=== PATIENT | female | born 1995 | race Caucasian/White ===

== ENCOUNTER 2017-02-05 14:05 | Emergency (ER) | payer OTHER ==
[~2017-02-05] VITALS: Ht 157.5 cm; Wt 43.4 kg
[2017-02-05 14:22] VITALS: BP 115/76
[2017-02-05] MEDS ORDERED: ONDANSETRON 2MG/ML, 2ML IVPush ONE (14:30)
[2017-02-05] MEDS ORDERED: SODIUM CHLORIDE 0.9% 1,000ML IVBOLUS ONE (14:30)
[2017-02-05] MEDS ORDERED: SODIUM CHLORIDE FLUSH 10ML SYR IVF ONE (14:30)
[2017-02-05] MEDS ORDERED: PLEASE ENTER ALLERGIES MC SCH ×2 (15:00)
[2017-02-05] MEDS ORDERED: NORE-53 PO (15:12)
[2017-02-05 15:39] LABS: ASPARTATE AMINO TRANSFERASE 33 U/L (15-37); BLOOD UREA NITROGEN 8 mg/dL (7-18)
[2017-02-05 16:10] LABS: RAPID INFLUENZA A Negative (Negative); RAPID INFLUENZA B Negative (Negative)
== END 2017-02-05 17:09 | disposition home or self-care (01) ==
LOC: ED 17:03
DX: B34.9 Viral infection, unspecified (principal); R11.2 Nausea with vomiting, unspecified; F12.10 Cannabis abuse, uncomplicated
CPT/HCPCS: 36415; 80053; 81001; 84703; 85025; 87400; 96360; 96361; 99285; J7030

== ENCOUNTER 2017-05-30 16:33 | Emergency (ER) | payer OTHER ==
[~2017-05-30] VITALS: Ht 157.5 cm; Wt 41.1 kg
[~2017-05-30 16:33] MED LIST: NORE-53 PO
[2017-05-30] MEDS ORDERED: ONDANSETRON ODT 4 MG ONE ×2 (16:58→17:39)
[2017-05-30] MEDS ORDERED: ONDANSETRON ODT 4 MG PO ONE (17:30)
[2017-05-30] MEDS ORDERED: BUSP7.5T3 PO (17:37)
[2017-05-30] MEDS ORDERED: VENL37.52 PO (17:37)
[2017-05-30 18:02] VITALS: BP 112/64
== END 2017-05-30 18:34 | disposition home or self-care (01) ==
LOC: ED 18:11
DX: G43.A1 Cyclical vomiting, in migraine, intractable (principal); R11.0 Nausea; F41.1 Generalized anxiety disorder
CPT/HCPCS: 36415; 71010; 85379; 93005; 99285; Q0162

== ENCOUNTER 2018-01-24 00:07 | Emergency (ER) | payer OTHER ==
[~2018-01-24] VITALS: Ht 162.6 cm; Wt 58.0 kg
[~2018-01-24 00:07] MED LIST changes: +BUSP7.5T3 PO; +VENL37.52 PO
[2018-01-24] MEDS ORDERED: LORazepam 2 MG/ML, 1ML ONE (00:34)
[2018-01-24 00:48] LABS: BASOPHILS # (AUTO) 0.06 x10^3/uL (0-0.1); BASOPHILS % (AUTO) 1 % (0-1); EOSINOPHILS # (AUTO) 0.23 x10^3/uL (0-0.4); EOSINOPHILS % (AUTO) 3 % (1-7); LYMPHOCYTES # (AUTO) 2.74 x10^3/uL (1-3.4); LYMPHOCYTES % (AUTO) 36 % (22-44); MD NO; MEAN CORPUSCULAR HEMOGLOBIN 30.6 pg (27.0-34.8); MEAN CORPUSCULAR HGB CONC 33.4 g/dL (32.4-35.8); MEAN CORPUSCULAR VOLUME 91.6 fL (80-100); MEAN PLATELET VOLUME 8.3 fL (7.4-10.4); MONOCYTES # (AUTO) 0.42 x10^3/uL (0.2-0.8); MONOCYTES % (AUTO) 6 % (2-9); NEUTROPHILS # (AUTO) 4.17 x10^3/uL (1.8-6.8); NEUTROPHILS % (AUTO) 55 % (42-75); PLATELET COUNT 292 x10^3/uL (130-400); RED BLOOD COUNT 4.57 x10^6/uL (3.82-5.3); RED CELL DISTRIBUTION WIDTH 13.2 % (9.6-15.2)
[2018-01-24] MEDS ORDERED: LORazepam 2 MG/ML, 1ML IVPush ONE (01:00)
[2018-01-24 01:01] LABS: ALBUMIN 3.6 g/dL (3.4-5.0); ANION GAP 5 mmol/L (5-15); CALCIUM 8.4 mg/dL (8.5-10.1); CHLORIDE 109 mmol/L (98-107); CREATININE 0.77 mg/dL (0.55-1.02)
[2018-01-24 01:35] VITALS: BP 115/67
== END 2018-01-24 01:38 | disposition home or self-care (01) ==
LOC: ED 00:20
DX: G40.309 Generalized idiopathic epilepsy and epileptic syndromes, not intractable, without status epilepticus (principal); R94.31 Abnormal electrocardiogram [ECG] [EKG]; I44.0 Atrioventricular block, first degree; F41.1 Generalized anxiety disorder
CPT/HCPCS: 36415; 80048; 82040; 84703; 85025; 93005; 96374; 99285; J2060